=== PATIENT | female | born 1955 | race Caucasian/White ===

== ENCOUNTER 2022-10-29 19:45 | Emergency (ER) | payer BC, MEDICAID ==
[~2022-10-29] VITALS: Ht 152.4 cm; Wt 67.7 kg
[~2022-10-29 19:45] MED LIST: CLIN-97 PO; CYCL-394 PO; NO HOME MEDS
--- NOTE | 2022-10-29 20:02 | NUR ---
POISION CONTROL; CHECK THYROID FUNCTION, CMP, EKG, LIVER FUNCTION FLUID NEEDED
[2022-10-29] MEDS ORDERED: normal saline 1000ML IV soln IVB ONE (20:25)
--- NOTE | 2022-10-29 20:43 | NUR ---
pt refused iv starts and iv fluids. jimmie amos made aware.
[2022-10-29 20:47] LABS: BASOPHILS % (AUTO) 0.6 % (0-1); EOSINOPHILS # (AUTO) 0.1 X10'3 (0-0.9); EOSINOPHILS % (AUTO) 0.7 % (0-6); HEMATOCRIT 42.7 % (35.0-45.0); HEMOGLOBIN 14.6 g/dl (12.0-16.0); LYMPHOCYTES # (AUTO) 1.3 X10'3 (1.1-4.8); LYMPHOCYTES % (AUTO) 18.8 % (21-51); MEAN CORPUSCULAR HEMOGLOBIN 31.7 PG (27.0-31.0); MEAN CORPUSCULAR HGB CONC 34.1 g/dL (33.0-36.5); MEAN CORPUSCULAR VOLUME 92.9 FL (78-98); MEAN PLATELET VOLUME 6.8 FL (7.4-10.4); MONOCYTES # (AUTO) 0.3 X10'3 (0-0.9); MONOCYTES % (AUTO) 4.5 % (2-12); NEUTROPHILS # (AUTO) 5.4 X10'3 (1.8-7.7); NEUTROPHILS % (AUTO) 75.4 % (42-75); PLATELET COUNT 211 X10'3 (140-440); RED CELL DISTRIBUTION WIDTH 13.1 % (11.5-14.5); WHITE BLOOD COUNT 7.1 X10'3 (4.5-11.0)
[2022-10-29 21:17] LABS: ALANINE AMINOTRANSFERASE 17 U/L (12-78); ALBUMIN 3.7 G/DL (3.4-5.0); ALBUMIN/GLOBULIN RATIO 1.1 (1.1-1.5); ALKALINE PHOSPHATASE 100 IU/L (46-116); ANION GAP 9 (8-16); ASPARTATE AMINO TRANSFERASE 19 U/L (10-37); BILIRUBIN,TOTAL 0.3 MG/DL (0.1-1.0); BLOOD UREA NITROGEN 24 MG/DL (7-18); BUN/CREATININE RATIO 24.7 (6.6-38.0); CALCIUM 8.8 MG/DL (8.5-10.1); CHLORIDE 102 MMOL/L (99-107); CREATININE 0.97 MG/DL (0.40-0.90); GLUCOSE 182 MG/DL (70-104); POTASSIUM 3.6 MMOL/L (3.5-5.1); SODIUM 135 MMOL/L (135-145); TOTAL CARBON DIOXIDE 23.6 MMOL/L (24-32); eGFR 57 ML/MIN
[2022-10-29 21:23] LABS: ACETAMINOPHEN < 2.0 UG/ML (10-30); ETHANOL < 0.010 GM/DL (0.0-0.010)
[2022-10-29 21:37] LABS: CLARITY,URINE CLEAR (Clear); COLOR,URINE YELLOW (Yellow); GLUCOSE, URINE NEGATIVE (Neg); KETONES,URINE 15 mg/dl (Neg); LEUKOCYTE ESTERASE ,URINE NEGATIVE (Neg); NITRITES, URINE NEGATIVE (Neg); OCCULT BLOOD,URINE NEGATIVE (Neg); PROTEIN,URINE NEGATIVE (Neg); UA COLLECTION TYPE CLN CATCH MIDSTREAM; UROBILINOGEN,URINE 0.2 E.U/dL (0.2-1.0)
[2022-10-29 21:53] LABS: URINE AMPHETAMINE SCREEN NEGATIVE (Neg); URINE BARBITUATE SCREEN NEGATIVE (Neg); URINE BENZODIAZEPINES SCREEN NEGATIVE (Neg); URINE CANNABINOID SCREEN NEGATIVE (Neg); URINE COCAINE SCREEN NEGATIVE (Neg); URINE METHADONE SCREEN NEGATIVE (Neg); URINE OPIATE SCREEN NEGATIVE (Neg); URINE PHENCYCLIDINE SCREEN NEGATIVE (Neg)
[2022-10-29 22:00] VITALS: BP 138/63
== END 2022-10-29 22:04 | disposition home or self-care (01) ==
LOC: ER 19:46
DX: T49.0X1A Poisoning by local antifungal, anti-infective and anti-inflammatory drugs, accidental (unintentional), initial encounter (principal); R11.0 Nausea; E11.65 Type 2 diabetes mellitus with hyperglycemia; Z79.899 Other long term (current) drug therapy; Y92.89 Other specified places as the place of occurrence of the external cause
CPT/HCPCS: 36415; 80053; 80305; 80320; 80329; 81003; 82140; 82948; 84443; 85025; 93005; 99285

== ENCOUNTER 2023-06-26 16:38 | Emergency (ER) | payer BC, MEDICAID ==
[~2023-06-26] VITALS: Ht 154.9 cm; Wt 67.3 kg
[~2023-06-26 16:38] MED LIST changes: -CLIN-97 PO; -CYCL-394 PO
[2023-06-26 17:57] LABS: BILIRUBIN,URINE NEGATIVE (Neg); CLARITY,URINE CLEAR (Clear); COLOR,URINE STRAW (Yellow); GLUCOSE, URINE NEGATIVE (Neg); KETONES,URINE NEGATIVE (Neg); LEUKOCYTE ESTERASE ,URINE NEGATIVE (Neg); NITRITES, URINE NEGATIVE (Neg); OCCULT BLOOD,URINE TRACE-INTACT (Neg); PROTEIN,URINE NEGATIVE (Neg); UROBILINOGEN,URINE 0.2 E.U/dL (0.2-1.0)
[2023-06-26 18:06] LABS: UA COLLECTION TYPE CLN CATCH MIDSTREAM
[2023-06-26 18:07] LABS: BASOPHILS # (AUTO) 0.1 X10'3 (0-0.2); BASOPHILS % (AUTO) 0.7 % (0-1); EOSINOPHILS # (AUTO) 0.1 X10'3 (0-0.9); EOSINOPHILS % (AUTO) 0.6 % (0-6); HEMATOCRIT 43.8 % (35.0-45.0); HEMOGLOBIN 14.7 g/dl (12.0-16.0); LYMPHOCYTES # (AUTO) 1.7 X10'3 (1.1-4.8); LYMPHOCYTES % (AUTO) 20.1 % (21-51); MEAN CORPUSCULAR HEMOGLOBIN 31.3 PG (27.0-31.0); MEAN CORPUSCULAR HGB CONC 33.7 g/dL (33.0-36.5); MEAN CORPUSCULAR VOLUME 93.1 FL (78-98); MEAN PLATELET VOLUME 7.1 FL (7.4-10.4); MONOCYTES # (AUTO) 0.6 X10'3 (0-0.9); MONOCYTES % (AUTO) 7.3 % (2-12); NEUTROPHILS # (AUTO) 6.2 X10'3 (1.8-7.7); NEUTROPHILS % (AUTO) 71.3 % (42-75); PLATELET COUNT 239 X10'3 (140-440); RED CELL DISTRIBUTION WIDTH 13.4 % (11.5-14.5); WHITE BLOOD COUNT 8.7 X10'3 (4.5-11.0)
[2023-06-26 18:17] LABS: RBC,URINE 0-2 /HPF (0-2); WBC,URINE 0-4 /HPF (0-4)
[2023-06-26 18:18] LABS: BACTERIA,URINE NONE SEEN /HPF (Neg); SQUAMOUS EPITHELIAL CELL,UR NONE SEEN /LPF (FEW)
[2023-06-26 18:32] LABS: ALANINE AMINOTRANSFERASE 33 U/L (12-78); ALBUMIN 3.9 G/DL (3.4-5.0); ALKALINE PHOSPHATASE 100 IU/L (46-116); ANION GAP 9 (8-16); ASPARTATE AMINO TRANSFERASE 20 U/L (10-37); BILIRUBIN,TOTAL 0.4 MG/DL (0.1-1.0); BLOOD UREA NITROGEN 23 MG/DL (7-18); BUN/CREATININE RATIO 23.5 (10.0-20.0); CALCIUM 9.3 MG/DL (8.5-10.1); CHLORIDE 101 MMOL/L (99-107); CREATININE 0.98 MG/DL (0.40-0.90); GLUCOSE 135 MG/DL (70-104); POTASSIUM 3.5 MMOL/L (3.5-5.1); SODIUM 139 MMOL/L (135-145); TOTAL CARBON DIOXIDE 28.9 MMOL/L (24-32); TOTAL PROTEIN 7.7 G/DL (6.4-8.2); eCRCL 42 ML/MIN; eGFR 57 ML/MIN
[2023-06-26 20:00] VITALS: BP 169/81; PULSE 66; RESP 15; TEMP 98; O2SAT 100
== END 2023-06-26 20:04 | disposition home or self-care (01) ==
LOC: ER 16:39
DX: R00.2 Palpitations (principal); E11.9 Type 2 diabetes mellitus without complications; Z79.899 Other long term (current) drug therapy
CPT/HCPCS: 36415; 80053; 81001; 82948; 85025; 93005; 99284

== ENCOUNTER 2025-08-06 14:04 | Emergency (ER) | payer BC ==
[~2025-08-06] VITALS: Ht 154.9 cm; Wt 60.9 kg
[2025-08-06 14:10] VITALS: BP 188/74; PULSE 74; RESP 17; TEMP 98.3; O2SAT 99
[2025-08-06 15:03] LABS: LEUKOCYTE ESTERASE ,URINE SMALL (Neg); NITRITES, URINE NEGATIVE (Neg); OCCULT BLOOD,URINE NEGATIVE (Neg)
[2025-08-06 15:08] LABS: UA COLLECTION TYPE CLN CATCH MIDSTREAM
[2025-08-06 15:10] LABS: SQUAMOUS EPITHELIAL CELL,UR FEW /LPF (FEW)
[2025-08-06 15:11] LABS: MUCUS STRANDS FEW /LPF (Neg); RENAL CELLS, URINE FEW /HPF
[2025-08-06] MEDS ORDERED: NITR100C6 PO (15:34)
--- NOTE | 2025-08-06 15:34 | Physician Documentation ---
History of Present Illness ~ Chief Complaint: Urinary Symptoms Stated Complaint: ABD PAIN Time Seen by MD: 14:50 Primary Medical Doctor: [facility] HPI Patient is a very pleasant 69-year-old female that presents to the emergency department for evaluation of dysuria times several days. Patient reports that she feels like this is her 3rd UTI in 3 months. Patient was admitted for sepsis secondary to UTI 3 months ago had a subsequent infection approximately a month after that was treated with Keflex and feels like she has developed another UTI over the last couple of weeks. Patient will follow up with her primary care provider regarding the recurrent UTIs she will be treated here in the emergency department today. We will follow up with the patient regarding culture results of today's UA. Denies fever chills nausea vomiting diarrhea or any other symptoms at this time. Medication Reconciliation Allergies: Coded Allergies: No Known Allergies (Unverified , 05/15/25) Scheduled Nitrofurantoin Monohyd/M-Cryst (Macrobid 100 mg Capsule), 1 CAP PO Q12H Miscellaneous Medications Home Med List (No Home Medications), (Reported) Past Medical History Past Medical History: Diabetes Past Surgical History: no surgical history Alcohol Use: None Lives In: Home Review of Systems ROS As stated above in the HPI, otherwise all systems are reviewed and negative. Physical Exam Vital Signs: Temperature: 98.3, Source: Oral, Heart Rate: 74, Respiratory Rate: 17, BP: 188/74, Pulse Oximetry: 99, Weight: 60.910 Physical Exam VITALS: Reviewed and as above. GENERAL: Alert, no apparent distress. HEENT: Normocephalic, atraumatic, PERRL, EOMI, dry mucosa, no erythema RESPIRATORY: Lungs clear, normal breath sounds, no respiratory distress. CHEST: No accessory muscle use, no retractions CV: Regular rate, rhythm, no edema, no murmur, No: JVD GI: Soft, non-tender, bowels sounds present, no rebound, guarding, or rigidity BACK: No CVA tenderness, or swelling MUSCULOSKELETAL No deformities, no edema SKIN: Warm and dry, no rash NEURO: Oriented x4, No motor or sensory deficit PSYCH: Normal mood and affect, no agitation Progress Results/Orders Results/Orders Laboratory Tests Test 08/06/25 14:18 Urine Specimen Description Cln catch midstream Urine Color Yellow Urine Clarity Clear Urine pH 6.0 Urine Specific Riggins 1.010 Urine Protein Negative Urine Glucose (UA) Negative Urine Ketones Negative Urine Occult Blood Negative Urine Nitrite Negative Urine Bilirubin Negative Urine Urobilinogen 0.2 Urine Leukocyte Esterase Small H Urine RBC 3-10 Urine WBC 5-10 H Urine Squamous Epithelial Cells Few Urine Transitional Epithelial Cells Few Urine Renal Cells Few Urine Bacteria Few Urine Mucus Few Urine Culture Indicated Indicated Volume Urine Centrifuged 10 ml Urine Comment Microbiology Date/Time Source Procedure Growth Status 08/06/25 15:11 Urine Clean Catch Midstream Urine Culture - Final Enterococcus Faecalis Complete Medical Decision Making Additional information obtaine: other Findings Chief Complaint: Recurrent urinary tract infections History of Present Illness: 69-year-old female with three culture-confirmed urinary tract infections over the past three months. Patient initially responded to cephalexin (Keflex) for acute episodes but developed recurrent UTI within one week of completing most recent course, meeting criteria for recurrent UTI (?3 UTIs in 12 months). This pattern suggests either treatment failure, reinfection, or possible bacterial persistence despite initial clinical response. [2] Medical Decision-Making: Number of Diagnoses/Management Options (Moderate Complexity): Recurrent uncomplicated cystitis - confirmed by clinical presentation and urine culture Consideration of antibiotic resistance given rapid recurrence after cephalexin Need for prophylactic strategy to prevent future episodes Amount/Complexity of Data (Moderate Complexity): Reviewed urine culture results from three separate episodes over three months Assessed antibiotic susceptibility patterns to guide treatment selection Considered patient's age-related risk factors for recurrent UTI including potential genitourinary atrophy Risk of Complications (Moderate Complexity): The patient's rapid recurrence after cephalexin treatment raises concern for either resistant organisms or inadequate treatment duration, as ?-lactams including cephalexin generally have inferior efficacy compared to other first- line UTI antimicrobials. Given the pattern of recurrence, there is moderate risk of developing antibiotic-resistant organisms with continued use of the same antibiotic class. Assessment and Plan: Acute Treatment: For the current UTI episode, switched antibiotic therapy from cephalexin to nitrofurantoin 100 mg orally twice daily for 5-7 days as first-line alternative agent. Nitrofurantoin demonstrates excellent activity against E. coli and most g rola-negative uropathogens with low resistance rates, though it is ineffective against some Proteus species and certain Enterobacter and Klebsiella strains. Alternative consideration was trimethoprim-sulfamethoxazole (TMP-SMX) 160/800 mg twice daily for 3 days, though this should only be used if local E. coli resistance rates are less than 20%. Prevention Strategy: Given this patient meets criteria for recurrent UTI, implemented comprehensive prevention plan prioritizing non-antibiotic interventions per [place] [employer] recommendations: Vaginal estrogen therapy - Prescribed as first-line preventive therapy for recurrent UTIs in postmenopausal women, as this is more appropriate than systemic estrogen and effectively reduces symptomatic UTI episodes. Vaginal estrogen addresses genitourinary atrophy that increases UTI susceptibility in older women. Non-pharmacologic interventions - Counseled patient on increased fluid intake and behavioral modifications as initial prevention strategies before resorting to suppressive antibiotics. Methenamine hippurate - Discussed as non-antibiotic pharmacologic option with variable but supportive evidence for UTI prevention. Antibiotic prophylaxis consideration - If non-antibiotic strategies prove insufficient, will consider prophylactic antibiotics such as trimethoprim or fosfomycin for 6-12 months, though this is reserved as second-line approach to minimize antibiotic resistance and collateral damage. Rationale: The [place] [employer] specifically recommends trialing non- pharmacological and non-antibiotic interventions before resorting to suppressive antibiotics in older women with recurrent UTIs. This approach balances effective infection prevention while minimizing antibiotic-related harms includ ing resistance development, adverse effects, and disruption of protective microbiomes. The patient's age (69 years) and postmenopausal status make vaginal estrogen particularly appropriate as it addresses the underlying pathophysiology of increased UTI susceptibility. Follow-up: Return to clinic in 4-6 weeks to assess response to vaginal estrogen and non- antibiotic prevention strategies Instructed to contact office if UTI symptoms recur before follow-up appointment Will obtain urine culture with any future symptomatic episodes to guide antibiotic selection and monitor for resistance patterns If patient experiences ?2 additional UTIs despite current prevention plan, will consider chronic suppressive antibiotic prophylaxis Overall MDM Complexity: Moderate Multiple diagnoses and management options considered Moderate amount of data reviewed including culture results and susceptibility patterns Moderate risk given recurrent infections and potential for antibiotic resistance Urinary Diff Dx:Considerations: Include: AAA, , Aortic dissection, Appendicitis, Bowel obstruction, Cholelithiasis, Choleangitis, DJD, Ectopic , Hepatitis, HNP, Impaction, Intrauterine , Musculoskeletal pain, Ovarian torsion, Pancreatitis, PID, Post-Op complication, Pyelonephritis, Renal failure, Strain, Urinary Obstruction, Urolithiasis, Urinary retention, UTI, Vaginitis, Other Genital Diff Dx:Considerations: Include: -Complete, - Incomplete, -Inevitable, Ablortion-Missed, -Threatened, Abruptio placentae, Bartholin abscess, Bartholin cyst, Blood loss anemia, Constipation, Cervicitis, Dsymenorrhea, Ectopic , Foreign body, Hormonal, Hidradenitis suppurativa, Intrauterine , Menorrhagia, Menometrorrhagia, Menstrual bleeding, Myomatous uterus, Perianal abscess, Physiologic discharge, Pinworms, PID, Placenta previa, , Precipitous Hct, Trauma, UTI, Vaginitis(osis)-Atrophic, Vaginitis, Vaginitis(osis)-Bacterial, Vaginitis(osis)- Candidal, Vaginitis(osis)-Contact, Vaginitis(osis)-Herpes, Vaginitis(osis)- Trich., Other Departure Disposition: 01 HOME / SELF CARE / HOMELESS Impression: Primary Impression: Acute urinary tract infection Discharge Instructions: Urinary Tract Infection, Adult Additional Instructions: Your Diagnosis You have been diagnosed with a urinary tract infection (UTI). Because you have had three UTIs in the past three months, this is considered recurrent UTI. We are treating your current infection and starting you on a prevention plan to reduce future infections. Your Medication: Macrobid (Nitrofurantoin) How to Take Your Antibiotic: Take one 100 mg capsule twice daily (every 12 hours) for 7 days Always take with food - ideally with breakfast and dinner - to help your body absorb the medicine better and reduce stomach upset Complete the full 7-day course even if you feel better after a few days Do not skip doses - this helps prevent bacteria from becoming resistant to antibiotics Important Warnings: Do not take antacids containing magnesium trisilicate while taking this medication Contact your doctor immediately if you develop: Watery or bloody diarrhea (even up to 2 months after finishing the antibiotic) Any unusual symptoms during treatment Difficulty breathing, chest pain, or severe allergic reactions What to Expect: You should start feeling better within 2-3 days of starting the antibiotic This medication only treats bacterial infections, not viral infections like the common cold Skipping doses or not finishing the full course may make the infection harder to treat in the future Preventing Future UTIs Because you have had multiple UTIs, we recommend the following prevention strategies: First-Line Prevention (Start These First): Vaginal estrogen therapy - This is the most effective prevention for recurrent UTIs in women after menopause and is recommended as first-line therapy Increase fluid intake - Drink more water throughout the day Behavioral changes - Urinate when you feel the urge, don't hold it in Additional Prevention Options to Discuss: Methenamine hippurate (a non-antibiotic medication) Cranberry products (note: quality and dose vary between products) D-mannose supplements When to Call Your Doctor: If your symptoms do not improve within 2-3 days of starting the antibiotic If you develop new symptoms like fever, back pain, nausea, or vomiting If you experience another UTI after completing this treatment If you have any unusual symptoms or side effects from the medication Follow-Up Care: Return for your scheduled follow-up appointment in 4-6 weeks We will discuss how well the prevention strategies are working If you continue to have frequent UTIs despite these measures, we may consider additional prevention options UTI Symptoms to Watch For: Burning or pain when urinating Frequent urge to urinate Cloudy, bloody, or strong-smelling urine Pelvic pain or pressure Fever or chills (may indicate kidney infection - seek immediate care) Referrals: NO PRIMARY CARE PROVIDER (PCP) Prescriptions Ciprofloxacin HCl (Cipro) 500 Mg Tablet 1 TAB PO Q12H for 5 Days, #10 TAB Prov: DOUGLAS GRIFFITHS NP 08/15/25 Nitrofurantoin Monohyd/M-Cryst (Macrobid 100 mg Capsule) 100 Mg Capsule 1 CAP PO Q12H for 7 Days, #14 CAP 0 Refills Prov: FELIPA POPE 08/06/25 Education Educated: Patient Educated regarding: diagnosis, treatment, need for follow up Signature Scribe Signature: A Attestation: Scribed for Felipa Pope by KOURTNEY Espinosa . 08/06/25 15:35 FELIPA POPE Aug 06, 2025 15:34 DOUGLAS GRIFFITHS NP Aug 15, 2025 15:03
[2025-08-06] MEDS: nitrofuran monohydrate/nitrofuran macrocrysal 100 MG (MacroBID) capsule PO ONE (15:43)
[2025-08-15] MEDS ORDERED: CIPR-259 PO (15:03)
== END 2025-08-06 15:53 | disposition home or self-care (01) ==
LOC: ER 14:05
DX: N39.0 Urinary tract infection, site not specified (principal); E11.9 Type 2 diabetes mellitus without complications; Z87.440 Personal history of urinary (tract) infections
CPT/HCPCS: 81001; 87077; 87088; 87186; 99283